=== PATIENT | male | born 1960 | race Caucasian/White ===

== ENCOUNTER 2017-10-17 10:35 | Day surgery (SDC) | payer BC ==
[~2017-10-17] VITALS: Ht 170.2 cm; Wt 77.2 kg
[2017-10-17] VITALS (13 sets, daily range): BP systolic 112–146; BP diastolic 64–85; PULSE 60–76; RESP 8–43; Ht 170.2 cm; Wt 77.2 kg
[~2017-10-17 10:35] MED LIST: CEFAZOLIN 1 GM INJ ONE; SUCCINYLCHOLINE CHLORIDE 100 MG/5 ML SYG IV ONE
[2017-10-17] MEDS ORDERED: LISI10TA2 PO (10:49)
--- NOTE | 2017-10-17 14:20 | HPN ---
Date/Time of Note Date/Time of Note DATE: 10/17/17 TIME: 14:20 Interval H&P Admission Note Pt. seen H&P reviewed: No system changes MARILU SLATER DPM Oct 17, 2017 14:20
[2017-10-17] MEDS ORDERED: PROPOFOL 20 ML ONE (14:25)
[2017-10-17] MEDS ORDERED: MIDAZOLAM 1 MG/ML 2 ML INJ ONE ×2 (14:25→14:49)
[2017-10-17] MEDS ORDERED: LIDOCAINE 2% (SDV) 5 ML INJ ONE (14:25)
[2017-10-17] MEDS ORDERED: HYDROCODONE/APAP (10/325) TAB PO PRN (14:30)
[2017-10-17] MEDS ORDERED: ONDANSETRON (ODT) 4 MG TAB ODT PRN (14:30)
[2017-10-17] MEDS ORDERED: FENTAnyl 50 MCG/ML VIAL ONE ×2 (14:50→16:07)
[2017-10-17] MEDS ORDERED: POLYMYXIN/BACITRACIN 1L IRRIG ONE (14:55)
[2017-10-17] MEDS: BUPIVACAINE 0.5% (SDV) 30 ML INJ ONE ×2 (14:55→15:39)
[2017-10-17] MEDS ORDERED: ONDANSETRON 4 MG INJ ONE (15:11)
[2017-10-17] MEDS ORDERED: DEXAMETHASONE 4 MG/ML 1 ML INJ ONE (15:12)
[2017-10-17] MEDS ORDERED: OXYCODONE/ACETAMINOPHEN (5/325) TAB PO PRN ×2 (16:00)
[2017-10-17] MEDS ORDERED: PROCHLORPERAZINE 10 MG INJ IV PRN (16:00)
[2017-10-17] MEDS ORDERED: hydrALAzine 20 MG INJ IV PRN (16:00)
[2017-10-17] MEDS ORDERED: FENTAnyl 50 MCG/ML VIAL IV PRN ×3 (16:00)
[2017-10-17] MEDS ORDERED: METOCLOPRAMIDE 10 MG INJ IV PRN (16:00)
[2017-10-17] MEDS ORDERED: EPHEDrine SULFATE 50 MG/5 ML SYG IV PRN (16:00)
[2017-10-17] MEDS ORDERED: HYDROmorphONE (0.2 MG/ML) 10ML SYG IV ONE (16:05)
--- NOTE | 2017-10-17 16:06 | SIPON ---
Date/Time of Note Date/Time of Note DATE: 10/17/17 TIME: 16:05 Operative Report Preoperative Diagnosis left Hallux Limitus Postoperative Diagnosis same Operation/Procedure Performed Decompression 1st MPJ. Surgeon see signature line human resources executive assistant none Anesthesia: general Estimated blood loss: 0 - 10 ml's Transfusion Required none Specimen Bone. Grafts/Implants none Complications none MARILU SLATER DPM Oct 17, 2017 16:06
--- NOTE | 2017-10-17 16:53 | RADRPT ---
PROCEDURE: XR Left foot. CLINICAL INDICATION: Postoperative evaluation, left foot pain TECHNIQUE: Three views of the left foot were obtained. COMPARISON: No prior studies are available for comparison. FINDINGS: There is no evidence of acute fracture. There is evidence of a median eminence shaving of the first metatarsal head. Alignment is normal. Joint spaces are preserved. There is forefoot soft tissue swelling with suggestion of soft tissue gas in the medial skin defect near the first metatarsal head defect. IMPRESSION: 1. Forefoot soft tissue swelling with small foci of soft tissue gas medially at the site of recent s urgery of the first metatarsal head. 2. Aside from the first metatarsal head median eminence shaving, no radiographic evidence of acute o sseous abnormality. RPTAT: [facility]U .Luis Patel MD, Date Time Electronically viewed and signed by .Luis Patel MD, on 10/17/2017 16:53 .K/
--- NOTE | 2017-10-17 22:28 | OPR ---
DATE OF OPERATION: 10/17/2017 PREOPERATIVE DIAGNOSIS: Exostosis of left foot. POSTOPERATIVE DIAGNOSIS: Exostosis of left foot. ANESTHESIA: General. OPERATIVE PROCEDURE: Patient was brought in the OR and approximately 10 mL of 0.5 percent plain Marcaine was utilized circumferentially around the 1st metatarsophalangeal joint of the left foot. The tourniquet was applied around the ankle. The foot and ankle was exsanguinated and tourniquet was inflated to approximately 250 mmHg. Attention was then directed to the dorsal medial aspect of the left foot 1st metatarsophalangeal joint region where a number 15 blade was utilized to perform an approximately 5 cm incision. Care was taken to ligate any bleeding vessels and retract any nervous tissue. A 15 blade was utilized to incise down to the capsular layer. Upon cutting into the capsular layer there was a clear staley serous fluid reminiscent of synovial fluid that was released. The capsule was then further incised and reflected. There was a large exostosis both medially and dorsally. In addition, the dorsal aspect of the 1st metatarsophalangeal joint demonstrated erosion of the articular cartilage. The area was then inspected and utilizing a sagittal saw, the medial exostosis was removed from dorsal to plantar. The exostosis dorsally was then removed across the top with a sagittal saw. The area was then copiously lavaged with antibiotic solution. A reciprocating rasp was then utilized to smooth and contour the 1st metatarsal phalangeal joint head. In addition, the lateral capsulotomy was performed to release the contractures on the lateral side. All tendons, both flexors and extensors, remained intact. Upon inspecting the osteoarthritic and cartilage denuding on the dorsal aspect of the 1st metatarsal 3 drill holes were executed into the head to increase perfusion of blood from the inner marrow to reduce inflammation, infection and healing process. In addition, EpiFix allograft was applied around the area. The capsular tissue was then inspected, redundant tissue was removed and a capsulorrhaphy was performed utilizing 2-0 and 3-0 Vicryl suture. The remaining EpiFix was then utilized 4 x 4 x 4.5, was cut to be applied on the capsular area. This once again will reduce inflammation and reduce infection and potentiate healing. The subcutaneous tissue was then coapted with 3-0 Vicryl suture. The skin was then coapted with a running stitch of 3-0 nylon. An injection of approximately 5 mL of 0.5 percent plain Marcaine was utilized circumferentially around the area. A dressing was then applied of Adaptic 4x4s, rolled gauze and Coban. The tourniquet was released. Normal reactive hyperemia was noted to all the digits of the left foot. This patient tolerated the procedure well and left the room in stable condition. Ancef was given prior to tourniquet inflation. There were no intraoperative complications noted. Dictated By: Mack Mendosa DPM /bisi/radha /Document#: [id number]
== END 2017-10-17 17:36 | disposition home or self-care (01) ==
LOC: MERGE 10:35 → SDS 10:35
PROVIDERS: ATTEND Podiatrist Foot & Ankle Surgery
DX: D16.32 Benign neoplasm of short bones of left lower limb (principal); I10 Essential (primary) hypertension; Z87.891 Personal history of nicotine dependence
CPT/HCPCS: 28108; 73630; J0690; J1100; J2250; J2405; J3010; J1170